=== PATIENT | female | born 1970 | race Caucasian/White ===

== ENCOUNTER 2020-02-27 11:53 | Outpatient (CLI) | payer OTHER, SELFPAY ==
--- NOTE | 2020-02-27 12:02 | MM_ITS ---
WS: [id number] SCREENING DIGITAL MAMMOGRAM WITH CAD HISTORY: SCREENING COMPARISON: 07/27/2017 and 07/16/2017 Bilateral CC and MLO views submitted. Computer aided detection analyzed. Breast composition: There are scattered areas of fibroglandular density. No suspicious masses, microc alcifications or architectural distortion. MM/[place] [id number] IMPRESSION: BI-RADS: 1-Negative FOLLOW UP: 1 Year Follow-up
== END 2020-02-27 11:54 | disposition home or self-care (01) ==
LOC: RADSHAW 11:57
PROVIDERS: PCP Family Medicine; Visit Provider Obstetrics & Gynecology
DX: Z12.31 Encounter for screening mammogram for malignant neoplasm of breast (principal); Z01.411 Encounter for gynecological examination (general) (routine) with abnormal findings
CPT/HCPCS: 77067; 88175

== ENCOUNTER 2020-03-05 10:45 | Outpatient (CLI) | payer OTHER, SELFPAY ==
--- NOTE | 2020-03-05 11:00 | US_ITS ---
WS: [id number] ULTRASOUND BREAST RIGHT TECHNIQUE: Ultrasound right breast focused area of concern. CLINICAL INFORMATION: nipple discharge right breast COMPARISON: None. FINDINGS: Ultrasound bilateral subareolar regions. RIGHT subareolar region is normal in appearance. Normal suba reolar ducts. No intraductal mass or lesion to indicate papilloma. Small amount of incidental debris in the left subareolar ducts. IMPRESSION: BI-RADS 2 benign US/US breast RT limited* [id number] Follow up: Annual screening mammography
== END 2020-03-05 10:46 | disposition home or self-care (01) ==
LOC: RAD 10:47
PROVIDERS: PCP Family Medicine; Visit Provider Surgery
DX: N64.52 Nipple discharge (principal)
CPT/HCPCS: 76642

== ENCOUNTER 2020-06-17 13:40 | Outpatient (CLI) | payer OTHER, SELFPAY ==
--- NOTE | 2020-06-17 13:45 | XR_ITS ---
WS: [id number] Exam: XR KUB [id number] Date/Time of Exam: 06/17/2020 1:45 PM Reason For Exam: RENAL STONE Comparison 10/29/2018. No bowel obstruction or free air. No abnormal calcifications superimposing the renal silhouettes. Sig ns of prior cholecystectomy. Visualized organ margins are intact. Moderate amount of stool in right c olon. Regional bony structures are intact. XR/XR KUB [id number] IMPRESSION: 1. No acute abdominal process. 2. No abnormal calcifications are visualized over the renal silhouettes.
== END 2020-06-17 13:41 | disposition home or self-care (01) ==
LOC: RAD 13:43
PROVIDERS: PCP Family Medicine; Visit Provider Nurse Practitioner Family
DX: N20.0 Calculus of kidney (principal)
CPT/HCPCS: 74018; 81003

== ENCOUNTER 2020-10-27 09:38 | Outpatient (CLI) | payer OTHER, SELFPAY ==
--- NOTE | 2020-10-27 09:55 | FL_ITS ---
WS: [id number] UPPER GI WITH SMALL BOWEL FOLLOW-THROUGH HISTORY: ABDOMINAL PAIN, DYSPHAGIA COMPARISON: None available. FLUOROSCOPIC TIME: 2.6 minutes. Double contrast upper GI examination was performed. Patient swallowed the barium mixture with no difficulty. No esophageal stricture or mass. Small reduc ible hiatal hernia. No reflux. Stomach distended well with contrast. Duodenal bulb was distensible pl iable. No ulceration or mass. Barium tablet was swallowed without difficulty. Small bowel follow-through. Barium transited the small bowel at 120 minutes. Small bowel transit time was normal. There is marked fecal retention throughout the entire colon with mild dilatation of the colon. FL/FL upperGI air smallbowel ser* IMPRESSION: 1. No esophageal stricture. 2. Diffuse fecal retention throughout the colon. Probably due to chronic const ipation. 3. Very small reducible hiatal hernia. No reflux. 4. Unremarkable small bowel follow-through.
== END 2020-10-27 09:39 | disposition home or self-care (01) ==
LOC: RADWPI 09:39
PROVIDERS: PCP Family Medicine; Visit Provider Family Medicine
DX: R10.13 Epigastric pain (principal); R13.10 Dysphagia, unspecified; K44.9 Diaphragmatic hernia without obstruction or gangrene
CPT/HCPCS: 74246; 74248

== ENCOUNTER → 2022-07-17 11:25 | Outpatient (BNVA) | payer BC, SELFPAY | PROVIDERS: PCP Family Medicine; Visit Provider Nurse Practitioner Family | DX: R50.9 Fever, unspecified (principal); J06.9 Acute upper respiratory infection, unspecified | CPT/HCPCS: 87400 ==

== ENCOUNTER 2023-01-26 12:11 | Outpatient (CLI) | payer BC, SELFPAY ==
[2023-01-26] MEDS: iohexol 350 mg/mL 500 mL Btl (per mL) IV (12:17)
[2023-01-26] MEDS: iohexol 350 mg/mL 500 mL Btl (per mL) PO (12:18)
--- NOTE | 2023-01-26 14:00 | CT_ITS ---
WS: [id number] CT ABDOMEN PELVIS TECHNIQUE: Contrast-enhanced CT of the abdomen and pelvis with coronal and sagittal reformatted image s. CLINICAL INFORMATION: R10.31 - Right lower quadrant pain COMPARISON: CT 2019 DLP: 589.[address] scans at [facility] use at least one of these dose optimization techniques: automated e xposure control; mA and/or kV adjustment per patient size (includes targeted exams where dose is matc hed to clinical indication); or iterative reconstruction. FINDINGS: Lung bases are well aerated. No acute pulmonary infiltrates. No focal pneumonia or pleural fluid. Mil d diffuse fatty infiltration liver. Cholecystectomy clips. Normal spleen. Normal portal vein and sple nirmal vein. Cholecystectomy clips. Normal GE junction. Normal pancreatic parenchymal enhancement. Adren al glands are normal. Normal renal parenchymal enhancement. No hydronephrosis. A few tiny renal cysts . Celiac and SMA are patent. Normal sigmoid colon. Constipation in the transverse colon. Normal appendix in the RIGHT lower quadra nt. [place] RIGHT low lateral abdominal wall hernia lateral to the rectus abdominis with herniated loop s of nonobstructed small bowel. No fluid collection or induration. Hernia defect measures approximate ly 4.7 cm. This is new since 2019. CT/CT abdomen pelvis w con* [id number] IMPRESSION: 1. RIGHT lateral lower abdominal wall spigelian type hernia. Wide hernia mouth measuring 4.7 CM. Herniated loops of nonobstructed small bowel. Recommend surg ical consultation. 2. No evidence of fluid or induration. 3. Diffuse fatty infiltration liver. Prior cholecystectomy. 4. Normal appendix in the RIGHT lower quadrant. 5. Mild RIGHT colon and transverse colon constipation. 6. No other acute findings.
== END 2023-01-26 12:12 | disposition home or self-care (01) ==
LOC: RAD 12:12
PROVIDERS: PCP Family Medicine; Visit Provider Nurse Practitioner
DX: K43.9 Ventral hernia without obstruction or gangrene (principal); R10.31 Right lower quadrant pain; K59.00 Constipation, unspecified; K76.0 Fatty (change of) liver, not elsewhere classified
CPT/HCPCS: 74177; Q9967

== ENCOUNTER → 2024-01-01 13:57 | Outpatient (BNVA) | payer BC, SELFPAY | PROVIDERS: PCP Family Medicine; Visit Provider Nurse Practitioner Family | DX: R30.0 Dysuria (principal); R31.9 Hematuria, unspecified; N20.0 Calculus of kidney | CPT/HCPCS: 81000 ==

== ENCOUNTER → 2024-01-21 10:39 | Outpatient (BNVA) | payer BC, SELFPAY | PROVIDERS: PCP Family Medicine; Visit Provider Nurse Practitioner | DX: E88.810 Metabolic syndrome (principal) | CPT/HCPCS: 81000 ==

== ENCOUNTER 2025-01-02 08:29 | Outpatient (CLI) | payer OTHER, SELFPAY ==
[2025-01-02] MEDS: iohexol 350 mg/mL 500 mL Btl (per mL) IV (09:39)
--- NOTE | 2025-01-02 10:00 | CT_ITS ---
WS: [id number] CT ABDOMEN AND PELVIS WITH CONTRAST HISTORY: R10.9 - Unspecified abdominal pain, RIGHT lower quadrant pain. TECHNIQUE: Imaging performed of the abdomen and pelvis with IV contrast. Single phase imaging of the abdomen. Coronal and sagittal reformats are submitted. All CT scans at [facility] use at least one of these dose optimization techniques: automated exposure control; mA and/or kV adjustment per patient size (includes targeted exams where dose is matched to clinical indication); or iterative reconstruction. IV CONTRAST: Omnipaque 350; 100 mL IV. Oral contrast: Yes. DLP: 562.43 mGy.cm COMPARISON: 01/26/2023 Lower thorax: Lung bases are clear. Heart is normal size. Small hiatal hernia. Liver/biliary system: Normal size with no intrahepatic dilatation. Gallbladder: Prior cholecystectomy. Normal common bile duct. Pancreas: Normal size pancreas and pancreatic duct. No adjacent inflammation. Spleen: Normal size spleen. No mass or infarct. Adrenal glands: Normal. Right kidney: Nonobstructing 5 mm calcification in the mid pelvis. Left kidney: Too small to characterize cortical hypodensity lower pole. Otherwise negative. Aorta: Normal. Lymphadenopathy: None. Free fluid: None. GI tract: Stomach is minimally distended with oral contrast. No small bowel obstruction. There is marked increased fecal material with air in the ascending colon through the transverse colon. At the splenic flexure there is a significant change in caliber. The proximal colon is significantly dilated with air. The descending colon beyond the splenic flexure is collapsed. There is an area of narrowing but no definite mass identified. No significant diverticular disease. Normal appendix. Abdominal wall: No recurrent abdominal wall hernia. Pelvis: Prior hysterectomy. Negative urinary bladder. Bones: No destructive process. Bilateral sacroiliitis. CT/CT abdomen pelvis w con* [id number] IMPRESSION: 1. There is marked air and fecal retention throughout the ascending and transv erse colon. Abrupt change in caliber at the splenic flexure with the distal col on being collapsed. No mass identified at the area of narrowing. Consider follo w-up by colonoscopy to exclude inflammatory or neoplastic stricture. If colonos copy is not performed consider at least a short-term follow-up CT to evaluate f or change. 2. No ascites or adenopathy. 3. Prior cholecystectomy. 4. No recurrent abdominal wall hernia. 5. Prior hysterectomy.
== END 2025-01-02 08:30 | disposition home or self-care (01) ==
PROVIDERS: PCP Family Medicine; Visit Provider Clinical Nurse Specialist Adult Health
DX: R10.9 Unspecified abdominal pain (principal); R93.89 Abnormal findings on diagnostic imaging of other specified body structures; Z90.49 Acquired absence of other specified parts of digestive tract; Z90.710 Acquired absence of both cervix and uterus; K44.9 Diaphragmatic hernia without obstruction or gangrene; N28.89 Other specified disorders of kidney and ureter; M46.1 Sacroiliitis, not elsewhere classified
CPT/HCPCS: 74177